=== PATIENT | male | born 1965 | race Caucasian/White ===

== ENCOUNTER 2021-07-16 23:06 | Emergency (ER) | payer MEDICAID, OTHER ==
[~2021-07-16] VITALS: Ht 177.8 cm; Wt 90.0 kg
[2021-07-16] MEDS ORDERED: ONDANSETRON HCL 4MG/2ML INJ IV PRN (23:30)
[2021-07-16] MEDS ORDERED: MORPHINE SULFATE 4 MG/ML CPJ (NOT FOR IM USE) IV PRN (23:30)
[2021-07-16] MEDS ORDERED: SODIUM CHLORIDE 0.9% 1,000 ML IV ONE (23:30)
[2021-07-16 23:57] LABS: BASOPHILS % 0.2 % (0.0-2.0); EOSINOPHILS % 1.6 % (0.0-5.0); HEMATOCRIT. 38.8 % (42.0-52.0); HEMOGLOBIN. 13.4 g/dL (14.0-18.0); LYMPHOCYTES % 24.7 % (20.0-50.0); MEAN CORPUSCULAR HEMOGLOBIN 31.2 pg (28.0-32.0); MEAN CORPUSCULAR VOLUME 90.1 fL (80.0-94.0); MEAN PLATELET VOLUME 9.1 fl (7.4-10.4); MONOCYTES % 10.6 % (2.0-8.0); NEUTROPHILS % 62.9 % (40.0-76.0); PLATELET 224 x1000/uL (130-400); RED CELL DISTRIBUTION WIDTH 13.6 % (11.6-14.6)
[2021-07-17 00:03] LABS: CHLORIDE 105 mEq/L (98-107)
[2021-07-17 02:49] LABS: CLARITY URINE CLEAR (CLEAR); COLOR URINE YELLOW (YELLOW); KETONES URINE TRACE (NEGATIVE); LEUKOCYTE ESTERASE URINE NEGATIVE (NEGATIVE); NITRITE URINE NEGATIVE (NEGATIVE); OCCULT BLOOD URINE NEGATIVE (NEGATIVE); PROTEIN URINE NEGATIVE (NEGATIVE); SPECIFIC GRAVITY URINE 1.045 (1.005-1.030)
[2021-07-17] MEDS ORDERED: METF-414 MT (04:41)
[2021-07-17] MEDS ORDERED: METFORMIN HCL 500MG TABLET PO SCH (05:00)
[2021-07-17 06:00] VITALS: BP 100/62
== END 2021-07-17 06:06 | disposition home or self-care (01) ==
LOC: ER 23:06
DX: S20.211A Contusion of right front wall of thorax, initial encounter (principal); E11.9 Type 2 diabetes mellitus without complications; Y04.0XXA Assault by unarmed brawl or fight, initial encounter; Y93.89 Activity, other specified; Y92.89 Other specified places as the place of occurrence of the external cause; Y99.8 Other external cause status
CPT/HCPCS: 36415; 71250; 73560; 74176; 80053; 81003; 83605; 83690; 85025; 96361; 96374; 96375; 99285; J2270; J2405; J7030